=== PATIENT | male | born 1975 ===

== ENCOUNTER → 2018-10-13 21:58 | Outpatient (REF) | payer BC, SELFPAY ==
[2018-10-13 23:02] LABS: Alanine Aminotransferase 39 IU/L (21-72); Albumin 4.5 g/dL (3.5-5.0); Albumin Globulin Ratio 1.7 (1.0-2.8); Alkaline Phosphatase 82 U/L (38-126); Aspartate Aminotransferase 30 IU/L (17-59); BUN Creatinine Ratio 16.4 (6-22); Bilirubin Total 0.4 mg/dL (0.2-1.3); Blood Urea Nitrogen 18 mg/dL (9-20); Calcium 9.6 mg/dL (8.4-10.2); Carbon Dioxide 26 mmol/L (22-32); Chloride 102 mmol/L (98-107); Estimated Glomerular Filt Rate > 60.0 mL/min (>60); Globulin 2.7 g/dL (1.7-4.1); Glucose 85 mg/dL (70-100); HEMOLYSIS < 15 (0-50); Potassium 4.5 mmol/L (3.4-5.1); Sodium 138 mmol/L (137-145); Total Protein 7.2 g/dL (6.3-8.2)
[2018-10-13 23:12] LABS: Add Manual Diff / Slide Review NO; Basophils Absolute Auto 0 /uL (0-100); Basophils Percent Auto 0.5 % (0-2); Eosinophils Absolute Auto 100 /uL (0-450); Eosinophils Percent Auto 1.6 % (2-4); Hematocrit 39.5 % (41-53); Lymphocytes Absolute Auto 1900 /uL (1100-4500); Mean Corpuscular HGB Conc 32.8 % (30-36); Mean Corpuscular Hemoglobin 29.6 PG (26-34); Mean Corpuscular Volume 90.3 fL (80-100); Monocytes Absolute Auto 400 /uL (0-900); Monocytes Percent Auto 7.6 % (3-14); Neutrophils Absolute Auto 2600 /uL (1500-7000); Neutrophils Percent Auto 52.3 % (50-75); Platelet Count 248 X10^3/uL (150-400); Red Blood Cell Count 4.37 X10^6/uL (4.5-5.9); Red Cell Distribution Width 12.4 % (11.6-14.8)
[2018-10-13 23:33] LABS: Estradiol, Total 25.5 pg/mL
[2018-10-16 13:41] LABS: Sex Hormone Binding Globulin 51.3; Testosterone, Total 492.5; Testosterone,Free 14.7
[2018-10-16 16:43] LABS: PSA Total 0.58 ng/mL (< 4.01)
== END ==
LOC: LAB 21:58
PROVIDERS: Visit Provider Naturopath
DX: R53.83 Other fatigue (principal); N52.9 Male erectile dysfunction, unspecified; R68.82 Decreased libido; B35.1 Tinea unguium
CPT/HCPCS: 36415; 80053; 82670; 84153; 84154; 84270; 84402; 84403; 85025

== ENCOUNTER → 2018-10-27 22:14 | Outpatient (ROUT) | payer BC, SELFPAY ==
[2018-10-28 02:04] LABS: Add Manual Diff / Slide Review NO; Basophils Absolute Auto 0 /uL (0-100); Basophils Percent Auto 0.3 % (0-2); Eosinophils Absolute Auto 100 /uL (0-450); Eosinophils Percent Auto 1.8 % (2-4); Hemoglobin 13.4 g/dL (13.5-17.5); Lymphocytes Absolute Auto 1600 /uL (1100-4500); Lymphocytes Percent Auto 39.1 % (25-40); Mean Corpuscular HGB Conc 32.7 % (30-36); Mean Corpuscular Hemoglobin 29.7 PG (26-34); Mean Corpuscular Volume 90.8 fL (80-100); Monocytes Absolute Auto 300 /uL (0-900); Monocytes Percent Auto 8.3 % (3-14); Neutrophils Absolute Auto 2000 /uL (1500-7000); Neutrophils Percent Auto 50.5 % (50-75); Platelet Count 237 X10^3/uL (150-400); Red Blood Cell Count 4.52 X10^6/uL (4.5-5.9); Red Cell Distribution Width 12.5 % (11.6-14.8)
[2018-10-28 05:59] LABS: Free T3, Triiodothyronine Free 3.78 pg/mL (2.77-5.27); Free T4, Direct Thyroxine 0.81 ng/dL (0.78-2.19)
[2018-10-28 06:13] LABS: Thyroid Stimulating Hormone 2.99 uIU/mL (0.47-4.68)
[2018-10-28 06:18] LABS: Ferritin 56.9 ng/mL (17.9-464)
== END ==
PROVIDERS: Visit Provider Naturopath
DX: R53.83 Other fatigue (principal); R68.82 Decreased libido; F43.23 Adjustment disorder with mixed anxiety and depressed mood
CPT/HCPCS: 36415; 82728; 84439; 84443; 84481; 85025